=== PATIENT | female | born 1970 | race Caucasian/White ===

== ENCOUNTER 2022-03-11 12:52 | Emergency (ER) | payer OTHER ==
[~2022-03-11] VITALS: Ht 165.1 cm; Wt 63.5 kg
[2022-03-11] MEDS ORDERED: PREMPRO 0.3 MG1 EACH PO (13:02)
[2022-03-11] MEDS ORDERED: KETO10TA2 PO (14:30)
== END 2022-03-11 14:34 | disposition home or self-care (01) ==
LOC: ER 12:52
DX: H92.01 Otalgia, right ear (principal)